=== PATIENT | female | born 1995 | race Asian ===

== ENCOUNTER 2017-03-08 13:28 | Outpatient (CLI) | payer BC ==
--- NOTE | 2017-03-08 16:16 | ULT ---
LEFT BREAST ULTRASOUND 03/08/17 HISTORY: Patient returns for followup ultrasound of the left breast with attention to the 12 o'clock position. FINDINGS: There was previously noted to be a somewhat faint area of slightly altered hypoechogenicity which cor responds to a palpable finding. I favor this being a fibroadenoma or just some focal asymmetric breas t tissue. On today's study, this area measures approximately 0.8 x 1.4 x 1.7 cm where it previously m easured 0.9 x 1.2 x 1.8 cm. It has certainly not showing any growth. IMPRESSION: Stable hypoechoic focus in the left breast at 12 o'clock, 3 cm from the nipple accounting for a palpa ble finding. I favor this being focal asymmetric breast tissue versus a fibroadenoma. I would suggest that the patient return in approximately nine month which would be a year from her first ultrasound examination of 12/06/16 for followup ultrasound examination at that point in time to document expected continued stability. If this mass increases in size by palpation,prior to that time, recommendation is for her to return f or additional imaging at that time. POS: [facility]
== END 2017-03-08 13:29 | disposition home or self-care (01) ==
LOC: ULT 13:28
PROVIDERS: ATTEND Family Medicine
DX: N63.20 Unspecified lump in the left breast, unspecified quadrant (principal)